=== PATIENT | male | born 1955 | race Caucasian/White ===

== ENCOUNTER 2016-12-22 20:13 | Observation (INO) ==
--- NOTE | 2016-12-22 20:35 | Emergency Department Note ---
Disposition Clinical Impression: Altered mental status Qualifiers: Altered mental status type: unspecified Qualified Code(s): R41.82 - Altered mental status, unspecified Syncope Qualifiers: Syncope type: unspecified Qualified Code(s): R55 - Syncope and collapse Disposition: Admitted As Inpatient Condition: Fair Time of Disposition: 23:19 Altered Mental Status HPI - General Chief Complaint: ED Altered Mental Status Stated Complaint: AMS Time Seen by Provider: 12/22/16 20:22 Source: patient, EMS Mode of arrival: EMS Nursing Notes Reviewed: Yes Vital Signs Reviewed: Yes - History of Present Illness HPI Narrative: 61-year-old who apparently was at home prior to arrival unclear on exact onset was found on his front room floor. Had some evidence of head trauma was some blood over his left ear. Complains of some neck pain. Squad reports that he had some weakness but was kapil able to quantify which side or how much weakness he had an slurred speech initially. Patient does have a history of a TIA in the past. Awake and alert answering questions is amnestic to the events that recently occurred to him. Onset is unknown. MD complaint: altered mental status, decreased responsiveness (Prior to arrival) Onset (ago): unknown Pain Severity: moderate Context: other (TIA in the past) Associated symptoms: Reports: other (Neck pain) Treatments prior to arrival: EMS treatment/medication - Related Data Home Medications Medication Instructions Recorded Confirmed Albuterol Sulfate [Proair Hfa] 2 puff IH Q4H PRN 12/22/16 12/22/16 Benazepril/Hydrochlorothiazide 1 tab PO DAILY 12/22/16 12/22/16 [Lotensin Hct 20-12.5 mg Tablet] FluocinoNIDE 0.05% CRM [Lidex] 1 appl TP BID PRN 12/22/16 12/22/16 Metoprolol XL (24 HR) Succ [Toprol 50 mg PO DAILY 12/22/16 12/22/16 XL] Pantoprazole Sodium [Protonix] 40 mg PO DAILY 12/22/16 12/22/16 Simvastatin [Zocor] 20 mg PO HS 12/22/16 12/22/16 amLODIPine [Norvasc] 5 mg PO DAILY 12/22/16 12/22/16 Allergies Allergy/AdvReac Type Severity Reaction Status Date / Time No Known Allergies Allergy Verified 09/11/17 20:20 All systems ED: reviewed and negative except as stated. Constitutional: Denies: fever, chills, weakness, weight change Eyes: Denies: eye pain, eye discharge, vision change ENT ED: Denies: ear pain, throat pain, dental pain, hearing loss, epistaxis, congestion, dysphagia Cardiovascular: Reports: syncope. Denies: chest pain, palpitations, dyspnea on exertion, edema Respiratory: Denies: cough, dyspnea, wheezes, hemoptysis, stridor Gastrointestinal: Denies: abdominal pain, nausea, vomiting, diarrhea, constipation, hematemesis, melena, hematochezia Genitourinary: Denies: urgency, dysuria, frequency, hematuria Musculoskeletal: Denies: back pain, neck pain, arthralgia, myalgia Integumentary: Denies: rash, abrasion, lesions Neurological: Reports: weakness (Resolved), other (Slurred speech resolved). Denies: headache, numbness, paresthesias, confusion, abnormal gait, vertigo Psychiatric: Denies: anxiety, depression, suicidal thoughts, homicidal thoughts , auditory hallucinations, visual hallucinations Endocrine: Denies: fatigue Hematological/Lymphatic: Denies: easy bleeding, easy bruising Allergic/Immunologic: Denies: facial swelling, urticaria Past Medical History - Past Medical History Medical history: Reports: hyperlipidemia, hypertension, TIA Psychiatric history: Reports: no psych history - Social History Smoking Status: Current every day smoker Smokeless Tobacco Status: No Alcohol use: Reports: none Drug use: Reports: none Physical Exam - General Limitations: altered mental status General appearance: alert, in no apparent distress - Head Head exam: atraumatic, normocephalic, normal inspection - Eye Eye exam: Present: normal appearance, PERRL, EOMI - ENT ENT exam: normal exam, normal oropharynx, mucous membranes moist - Neck Neck exam: Present: normal inspection, full ROM, trachea midline - Chest Chest inspection: Present: normal inspection, symmetric chest wall rise - Respiratory Respiratory exam: Present: normal lung sounds bilaterally - Cardiovascular Cardiovascular exam: Present: regular rate, normal rhythm, normal heart sounds - Abdominal Exam Abdominal exam: Present: soft, Non-Tender. Absent: tenderness, distention, guarding, rebound, rigidity - Extremities Exam Extremities exam: Present: normal inspection, full ROM. Absent: tenderness, pedal edema - Expanded Lower Extremity Exam Neurovascular/Tendon exam: Absent: motor deficit, sensory deficit, tendon deficit Gait: not tested/not observed - Back Exam Back exam: Present: normal inspection, full ROM. Absent: tenderness - Neurological Exam Neurological exam: Present: alert. Absent: motor sensory deficit - Psychiatric Psychiatric exam: Present: normal affect, normal mood - Skin Skin exam: Present: warm, dry, intact, normal color Course - Reevaluation(s) Reevaluation #1: 61-year-old who apparently suffered a syncopal episode. Squad noted general weakness and slurred speech however that resolved by the time he had come to the ER. Did have a TIA in the past. Workup here he was clear his NIH stroke scale was 0. CT of the head and neck were negative. Patient will be admitted for evaluation possible seizure versus syncope. Time: 23:17 - Consultations Consultation #1: Discussed with Dr. Evans miranda. Time: 23:18 Vital Signs Temperature 98.1 F 12/22/16 20:15 Pulse Rate 82 12/22/16 20:15 Respiratory Rate 16 12/22/16 20:15 Blood Pressure 170/118 12/22/16 20:15 O2 Sat by Pulse Oximetry 96 12/22/16 20:15 Temperature 98.1 F 12/22/16 20:15 Pulse Rate 62 12/22/16 22:01 Respiratory Rate 16 12/22/16 22:01 Blood Pressure 150/90 12/22/16 22:01 O2 Sat by Pulse Oximetry 96 12/22/16 22:01 Oxygen Delivery Oxygen Delivery Room Air Altered Mental Status - Lab Data Lab results reviewed: Yes I reviewed the patient's lab results. Result diagrams: 12/22/16 20:35 12/22/16 20:35 Lab Results 12/22/16 12/22/16 12/22/16 Range/Units 20:22 20:35 20:35 WBC 13.8 H (4.3-11.1) K/mcL RBC 4.62 (4.19-5.50) M/mcL Hgb 14.3 (12.9-16.9) g/dL Hct 41.4 (37.5-50.1) % MCV 89.6 (83.0-100.0) fL MCH 31.0 (28.0-33.3) pg MCHC 34.5 (31.6-35.5) g/dL RDW 12.4 (11.5-14.5) % Plt Count 192 (140-400) K/mcL MPV 9.8 (9.4-12.4) fL Immature Gran % 0.4 (0-4) % Seg Neutrophils % 80.3 % Lymphocytes % 10.0 % Monocytes % 7.2 % Eosinophils % 1.3 % Basophils % 0.8 % Neutrophils # 11.1 H (1.6-8.9) K/mcL Lymphocytes # 1.4 (0.6-4.6) K/mcL Monocytes # 1.0 (0.0-1.3) K/mcL Eosinophils # 0.2 (0.0-0.6) K/mcL Basophils # 0.1 (0.0-0.2) K/mcL PT 11.7 (9.4-12.1) Seconds INR 1.1 APTT 33.1 (26.0-36.0) Seconds Sodium (136-145) mEq/L Potassium (3.5-4.5) mEq/L Chloride (98-109) mEq/L Carbon Dioxide (19-29) mEq/L BUN (8-26) mg/dL Creatinine (0.72-1.25) mg/dL Est GFR ( Amer) (> 60) Est GFR (Non-Af Amer) (> 60) BUN/Creatinine Ratio (6-26) Glucose (70-99) mg/dL POC Glucose 124 H (58-89) Calculated Osmolality (280-300) Calcium (8.6-10.8) mg/dL Total Bilirubin (0.2-1.2) mg/dL Direct Bilirubin (0.0-0.5) mg/dL Indirect Bilirubin (0.0-1.2) mg/dL AST (5-34) Units/L ALT (0-55) Units/L Alkaline Phosphatase (38-126) Units/L Troponin I (0-0.03) ng/mL Serum Total Protein (6.0-8.3) g/dL Albumin (3.5-5.0) g/dL Globulin (2.4-3.5) g/dL Albumin/Globulin Ratio (1.1-2.2) Urine Color (Yellow) Urine Clarity (Clear) Urine pH (5.0-8.0) pH Units Ur Specific [place] (1.010-1.025) Urine Protein (Neg-Trace) mg/dL Urine Glucose (UA) (Normal) mg/dL Urine Ketones (Negative) mg/dL Urine Blood (Negative) Urine Nitrite (Negative) Urine Bilirubin (Negative) Urine Urobilinogen (Normal) mg/dL Ur Leukocyte Esterase (Negative) Urine Microscopic RBC (0-3) per hpf Urine Microscopic WBC (0-3) per hpf Ur Squamous Epith Cells (None-Few) per lpf Urine Bacteria (None-Few) per hpf Hyaline Casts (None-Few) per lpf Ur Culture Indicated? (NO) Urine Opiates Screen (Tglsaq=520) ng/mL Ur Barbiturates Screen (Qtsxxf=950) ng/mL Ur Phencyclidine Scrn (Cutoff=25) ng/mL Ur Amphetamines Screen (Unzzqf=0422) ng/mL U Benzodiazepines Scrn (Urfaob=908) ng/mL Urine Cocaine Screen (Cutoff= 300) ng/mL U Marijuana (THC) Screen (Cutoff = 50) ng/mL Ethyl Alcohol (0-10) mg/dL 12/22/16 12/22/16 12/22/16 Range/Units 20:35 20:35 20:43 WBC (4.3-11.1) K/mcL RBC (4.19-5.50) M/mcL Hgb (12.9-16.9) g/dL Hct (37.5-50.1) % MCV (83.0-100.0) fL MCH (28.0-33.3) pg MCHC (31.6-35.5) g/dL RDW (11.5-14.5) % Plt Count (140-400) K/mcL MPV (9.4-12.4) fL Immature Gran % (0-4) % Seg Neutrophils % % Lymphocytes % % Monocytes % % Eosinophils % % Basophils % % Neutrophils # (1.6-8.9) K/mcL Lymphocytes # (0.6-4.6) K/mcL Monocytes # (0.0-1.3) K/mcL Eosinophils # (0.0-0.6) K/mcL Basophils # (0.0-0.2) K/mcL PT (9.4-12.1) Seconds INR APTT (26.0-36.0) Seconds Sodium 130 L (136-145) mEq/L Potassium 3.5 (3.5-4.5) mEq/L Chloride 96 L (98-109) mEq/L Carbon Dioxide 24 (19-29) mEq/L BUN 16 (8-26) mg/dL Creatinine 0.96 (0.72-1.25) mg/dL Est GFR ( Amer) > 60 (> 60) Est GFR (Non-Af Amer) > 60 (> 60) BUN/Creatinine Ratio 17 (6-26) Glucose 120 H (70-99) mg/dL POC Glucose (58-89) Calculated Osmolality 272 L (280-300) Calcium 9.6 (8.6-10.8) mg/dL Total Bilirubin 0.4 (0.2-1.2) mg/dL Direct Bilirubin 0.2 (0.0-0.5) mg/dL Indirect Bilirubin 0.2 (0.0-1.2) mg/dL AST 16 (5-34) Units/L ALT 21 (0-55) Units/L Alkaline Phosphatase 64 (38-126) Units/L Troponin I 0.02 (0-0.03) ng/mL Serum Total Protein 7.2 (6.0-8.3) g/dL Albumin 3.8 (3.5-5.0) g/dL Globulin 3.4 (2.4-3.5) g/dL Albumin/Globulin Ratio 1.1 (1.1-2.2) Urine Color Yellow (Yellow) Urine Clarity Clear (Clear) Urine pH 6.0 (5.0-8.0) pH Units Ur Specific [place] 1.023 (1.010-1.025) Urine Protein 100 H (Neg-Trace) mg/dL Urine Glucose (UA) Normal (Normal) mg/dL Urine Ketones Negative (Negative) mg/dL Urine Blood Small H (Negative) Urine Nitrite Negative (Negative) Urine Bilirubin Negative (Negative) Urine Urobilinogen Normal (Normal) mg/dL Ur Leukocyte Esterase Negative (Negative) Urine Microscopic RBC 5-15 H (0-3) per hpf Urine Microscopic WBC 0-3 (0-3) per hpf Ur Squamous Epith Cells Moderate H (None-Few) per lpf Urine Bacteria None Seen (None-Few) per hpf Hyaline Casts None Seen (None-Few) per lpf Ur Culture Indicated? NO (NO) Urine Opiates Screen (Gpqvmx=414) ng/mL Ur Barbiturates Screen (Gbalxx=999) ng/mL Ur Phencyclidine Scrn (Cutoff=25) ng/mL Ur Amphetamines Screen ([place]=8644) ng/mL U Benzodiazepines Scrn (Kydnbg=510) ng/mL Urine Cocaine Screen (Cutoff= 300) ng/mL U Marijuana (THC) Screen (Cutoff = 50) ng/mL Ethyl Alcohol < 10 (0-10) mg/dL 12/22/16 Range/Units 20:43 WBC (4.3-11.1) K/mcL RBC (4.19-5.50) M/mcL Hgb (12.9-16.9) g/dL Hct (37.5-50.1) % MCV (83.0-100.0) fL MCH (28.0-33.3) pg MCHC (31.6-35.5) g/dL RDW (11.5-14.5) % Plt Count (140-400) K/mcL MPV (9.4-12.4) fL Immature Gran % (0-4) % Seg Neutrophils % % Lymphocytes % % Monocytes % % Eosinophils % % Basophils % % Neutrophils # (1.6-8.9) K/mcL Lymphocytes # (0.6-4.6) K/mcL Monocytes # (0.0-1.3) K/mcL Eosinophils # (0.0-0.6) K/mcL Basophils # (0.0-0.2) K/mcL PT (9.4-12.1) Seconds INR APTT (26.0-36.0) Seconds Sodium (136-145) mEq/L Potassium (3.5-4.5) mEq/L Chloride (98-109) mEq/L Carbon Dioxide (19-29) mEq/L BUN (8-26) mg/dL Creatinine (0.72-1.25) mg/dL Est GFR ( Amer) (> 60) Est GFR (Non-Af Amer) (> 60) BUN/Creatinine Ratio (6-26) Glucose (70-99) mg/dL POC Glucose (58-89) Calculated Osmolality (280-300) Calcium (8.6-10.8) mg/dL Total Bilirubin (0.2-1.2) mg/dL Direct Bilirubin (0.0-0.5) mg/dL Indirect Bilirubin (0.0-1.2) mg/dL AST (5-34) Units/L ALT (0-55) Units/L Alkaline Phosphatase (38-126) Units/L Troponin I (0-0.03) ng/mL Serum Total Protein (6.0-8.3) g/dL Albumin (3.5-5.0) g/dL Globulin (2.4-3.5) g/dL Albumin/Globulin Ratio (1.1-2.2) Urine Color (Yellow) Urine Clarity (Clear) Urine pH (5.0-8.0) pH Units Ur Specific [place] (1.010-1.025) Urine Protein (Neg-Trace) mg/dL Urine Glucose (UA) (Normal) mg/dL Urine Ketones (Negative) mg/dL Urine Blood (Negative) Urine Nitrite (Negative) Urine Bilirubin (Negative) Urine Urobilinogen (Normal) mg/dL Ur Leukocyte Esterase (Negative) Urine Microscopic RBC (0-3) per hpf Urine Microscopic WBC (0-3) per hpf Ur Squamous Epith Cells (None-Few) per lpf Urine Bacteria (None-Few) per hpf Hyaline Casts (None-Few) per lpf Ur Culture Indicated? (NO) Urine Opiates Screen Negative (Xdgcvs=336) ng/mL Ur Barbiturates Screen Negative (Shskvk=132) ng/mL Ur Phencyclidine Scrn Negative (Cutoff=25) ng/mL Ur Amphetamines Screen Negative (Tylsgg=0085) ng/mL U Benzodiazepines Scrn Negative (Etkceu=849) ng/mL Urine Cocaine Screen Negative (Cutoff= 300) ng/mL U Marijuana (THC) Screen Negative (Cutoff = 50) ng/mL Ethyl Alcohol (0-10) mg/dL - Radiology Data Radiology results reviewed: Yes I reviewed the patient's radiology results. Cervical Spine CT 12/22/16 20:31 IMPRESSION: No acute abnormality of the cervical spine. D/ / Adrian Jones MD / Adrian Jones MD Interpreting Provider: Adrian Jones MD Chest X-Ray 12/22/16 20:31 IMPRESSION: No acute cardiopulmonary abnormality. D/ / Sivakumar Morales MD / Sivakumar Morales MD Interpreting Provider: Sivakumar Morales MD Head CT 12/22/16 20:31 IMPRESSION: No acute intracranial abnormality. D/ / Adrian Jones MD / Adrian Jones MD Interpreting Provider: Adrian Jones MD - EKG Data EKG attestation: Yes I reviewed and interpreted this EKG. EKG shows normal: sinus rhythm Rate: normal Rhythm: NSR Interpretation: no acute changes TPA Checklist - Eligibilty for IV tPA 1. LKW equal to or less than 4.5 hours be before treatment: No - LKW: 3-4.5 hrs Add. Warnings/Precautions Patient/family understanding: The patient/family members have been counseled and understood the risk, benefit , and alternatives of treatment. NIH Stroke Scale - Level of Consciousness LOC: Alert - LOC Questions LOC Questions: Answers both correctly - LOC Commands LOC Commands: Performs both correctly - Best Gaze Best Gaze: Normal - Visual Visual: No visual loss - Facial Palsy Facial Palsy: Normal - Motor Arms Motor Arm-Left: No drift for 10 seconds Motor Arm-Right: No drift for 10 seconds - Motor Legs Motor Leg-Left: No drift for 5 seconds Motor Leg-Right: No drift for 5 seconds - Limb Ataxia Limb Ataxia: Normal, No Ataxia - Sensory Sensory: Normal - Best Language Best Language: No aphasia - Dysarthria Dysarthria: Normal - Extinction and Inattention Extinction and Inattention: Normal - NIHSS Total Score NIHSS Total Score: 0
[2016-12-22 20:42] LABS: Hematocrit 41.4 % (37.5-50.1); Hemoglobin 14.3 g/dL (12.9-16.9); Mean Corpuscular HGB Conc 34.5 g/dL (31.6-35.5); Mean Corpuscular Volume 89.6 fL (83.0-100.0); Red Blood Count 4.62 M/mcL (4.19-5.50); Red Cell Distribution Width 12.4 % (11.5-14.5)
[2016-12-22 20:43] LABS: Basophils # 0.1 K/mcL (0.0-0.2); Basophils % 0.8 %; Eosinophils # 0.2 K/mcL (0.0-0.6); Eosinophils % 1.3 %; Immature Granulocytes % 0.4 % (0-4); Lymphocytes # 1.4 K/mcL (0.6-4.6); Mean Platelet Volume 9.8 fL (9.4-12.4); Monocytes % 7.2 %; Neutrophils # 11.1 K/mcL (1.6-8.9); Platelet Count 192 K/mcL (140-400); Segmented Neutrophils % 80.3 %
[2016-12-22 20:50] LABS: Bilirubin,Urine Negative (Negative); Blood,Urine Small (Negative); Clarity,Urine Clear (Clear); Color,Urine Yellow (Yellow); Glucose,Urine (UA) Normal (Normal); Ketones,Urine Negative (Negative); Leukocyte Esterase,Urine Negative (Negative); Nitrite,Urine Negative (Negative); Protein,Urine 100 mg/dL (Neg-Trace); Specific Gravity,Urine 1.023 (1.010-1.025); Urobilinogen,Urine Normal (Normal)
[2016-12-22 20:53] LABS: Bacteria,Urine None Seen per hpf (None-Few); Hyaline Casts,Urine None Seen per lpf (None-Few); Squamous Epithelial Cell,Urine Moderate per lpf (None-Few); WBC,Urine 0-3 per hpf (0-3)
[2016-12-22 20:53] LABS: INR 1.1; Prothrombin Time 11.7 Seconds (9.4-12.1)
[2016-12-22 20:56] LABS: Activated Partial Thrombo Time 33.1 Seconds (26.0-36.0)
[2016-12-22 20:57] LABS: Amphetamine Screen,Urine Negative ng/mL (Cutoff=1000); Barbiturate Screen,Urine Negative ng/mL (Cutoff=200); Benzodiazepines Screen,Urine Negative ng/mL (Cutoff=200); Cannabinoid Screen,Urine Negative ng/mL (Cutoff = 50); Cocaine Screen,Urine Negative ng/mL (Cutoff= 300); Opiate Screen,Urine Negative ng/mL (Cutoff=300); Phencyclidine Screen,Urine Negative ng/mL (Cutoff=25)
[2016-12-22 20:58] LABS: Alanine Aminotransferase 21 Units/L (0-55); Albumin 3.8 g/dL (3.5-5.0); Albumin/Globulin Ratio 1.1 (1.1-2.2); Alkaline Phosphatase 64 Units/L (38-126); Aspartate Amino Transferase 16 Units/L (5-34); BUN/Creatinine Ratio 17 (6-26); Bilirubin,Direct 0.2 mg/dL (0.0-0.5); Bilirubin,Indirect 0.2 mg/dL (0.0-1.2); Bilirubin,Total 0.4 mg/dL (0.2-1.2); Blood Urea Nitrogen 16 mg/dL (8-26); Calcium 9.6 mg/dL (8.6-10.8); Carbon Dioxide 24 mEq/L (19-29); Chloride 96 mEq/L (98-109); Ethanol < 10 mg/dL (0-10); Globulin 3.4 g/dL (2.4-3.5); Glucose 120 mg/dL (70-99); Osmolality,Calculated 272 (280-300); Potassium 3.5 mEq/L (3.5-4.5); Sodium 130 mEq/L (136-145); Total Protein 7.2 g/dL (6.0-8.3); eGFR For African Americans > 60 (> 60); eGFR For Non-African Americans > 60 (> 60)
[2016-12-23] MEDS ORDERED: Naloxone 0.4 MG/ML INJ IVP PRN (00:20)
--- NOTE | 2016-12-23 00:29 | Internal Med History&Physical ---
Date of Encounter: 12/23/16 Time of Encounter: 00:26 Assessment and Plan (1) Syncope Current visit: Yes Status: Acute Tele monitoring inhouse Check TTE Check MRI brain PT eval Orthostats vitals TID Correct hyponatremia Qualifiers: Syncope type: unspecified Qualified Code(s): R55 - Syncope and collapse (2) Hyponatremia Current visit: Yes Status: Acute trend Na with 0.9% NS, send urine NA, urine osmos (3) HTN (hypertension), benign Current visit: Yes Status: Acute continue med (4) TIA (transient ischemic attack) Current visit: No Status: Acute reported hx of TIA per patient Qualifiers: Transient cerebral ischemia type: other Qualified Code(s): G45.8 - Other transient cerebral ischemic attacks and related syndromes Internal Medicine - H&P: HPI History of present illness: Mr. Valente is a 61 year old male with hx of HTN, reported TIA and a hx of syncope who presents with acute syncope attack. He remembers coming home from work but did not recall what happened. He had no recollection of events but report from family reported hearing a loud thud where he was found on the ground in the front room. He noted some local neck pain and blood over the left side of head. He reports a hx of syncope episode which he cannot recall when it was but remembered that it was when he was dx with a small CVA or TIA. He denies any cardiac hx on direct questioning Objectively, he was found to be hyponatremic with Na 130. There were EMS report of generalized weakness and slurred speech ?? on initial triage but these were all unclear CT/CT head/brain wo con IMPRESSION: No acute intracranial abnormality. XR/XR chest 1V portable IMPRESSION: No acute cardiopulmonary abnormality. CT/CT cervical spine wo con IMPRESSION: No acute abnormality of the cervical spine. Past Med Surg Social Fam HX - Past Medical History Medical history: hyperlipidemia, hypertension, TIA Psychiatric history: no psych history - Social History Smoking Status: Current every day smoker Smokeless Tobacco Status: No Alcohol use: none Drug use: none Internal Medicine - H&P: Meds Albuterol Sulfate [Proair Hfa] 2 puff IH Q4H PRN 12/22/16 [History] Benazepril/Hydrochlorothiazide [Lotensin Hct 20-12.5 mg Tablet] 1 tab PO DAILY 12/22/16 [History] FluocinoNIDE 0.05% CRM [Lidex] 1 appl TP BID PRN 12/22/16 [History] Metoprolol XL (24 HR) Succ [Toprol XL] 50 mg PO DAILY 12/22/16 [History] Pantoprazole Sodium [Protonix] 40 mg PO DAILY 12/22/16 [History] Simvastatin [Zocor] 20 mg PO HS 12/22/16 [History] amLODIPine [Norvasc] 5 mg PO DAILY 12/22/16 [History] 3 Allergy/AdvReac Type Severity Reaction Status Date / Time No Known Allergies Allergy Verified 12/22/16 20:20 All Systems PM: A 10-system review of systems was performed and is negative for pertinent findings except as documented above in the HPI. Review of systems: ROS 14 point review of systems reviewed as best as possible given presentation. Pertinent positive or negative as per HPI or otherwise reviewed as negative - Constitutional Vitals: Temp Pulse Resp BP Pulse Ox 98.1 F 62 20 120/73 96 12/22/16 20:15 12/22/16 22:01 12/22/16 23:58 12/22/16 23:58 12/22/16 22:01 Exam: General - AAO x 3 Psych - Appropriate affect/speech. No agitation Eyes - SHERON. Eye lids intact. No scleral icterus Neuro - No gross peripheral or central neuro deficits with intact CN 2-12 exam Heart - Sinus. RRR. S1 and S2 present. No added HS/murmurs appreciated. No elevated JVD appreciated. No calf swellings/erythema Lung - Adequate air entry b/l, No crackles/wheezes appreciated GI - Soft, non-tender. No hepatosplenomegaly/ascites. BS+ - No CVA/suprapubic tenderness or palpable bladder distension Skin - Intact. No rash/petechiae/ecchymosis. Warm extremities MSK - Joints with normal ROM. No joint swellings Internal Med - H&P Results - Labs CBC & Chem 7: 12/22/16 20:35 12/22/16 20:35
[2016-12-23] MEDS: 0.9 % Sodium Chloride 1,000 ML IVC SCH ×2 (01:20→19:21)
[2016-12-23 04:32] LABS: Basophils # 0.1 K/mcL (0.0-0.2); Basophils % 0.9 %; Eosinophils # 0.2 K/mcL (0.0-0.6); Eosinophils % 1.7 %; Hematocrit 38.6 % (37.5-50.1); Hemoglobin 13.5 g/dL (12.9-16.9); Immature Granulocytes % 0.3 % (0-4); Lymphocytes # 2.7 K/mcL (0.6-4.6); Lymphocytes % 23.6 %; Mean Corpuscular Hemoglobin 31.8 pg (28.0-33.3); Monocytes % 8.2 %; Neutrophils # 7.6 K/mcL (1.6-8.9); Platelet Count 171 K/mcL (140-400); Red Blood Count 4.24 M/mcL (4.19-5.50); Red Cell Distribution Width 12.5 % (11.5-14.5); Segmented Neutrophils % 65.3 %
[2016-12-23 04:41] LABS: BUN/Creatinine Ratio 14 (6-26); Blood Urea Nitrogen 12 mg/dL (8-26); Calcium 9.3 mg/dL (8.6-10.8); Carbon Dioxide 25 mEq/L (19-29); Chloride 100 mEq/L (98-109); Glucose 88 mg/dL (70-99); Magnesium 1.7 mg/dL (1.6-2.6); Osmolality,Calculated 275 (280-300); Potassium 3.6 mEq/L (3.5-4.5); Sodium 133 mEq/L (136-145); eGFR For African Americans > 60 (> 60); eGFR For Non-African Americans > 60 (> 60)
[2016-12-23] MEDS: Metoprolol XL (24 HR) Succ 50 MG TAB.ER.24H PO SCH (08:02)
[2016-12-23] MEDS: amLODIPine 5 MG TABLET PO SCH (08:02)
[2016-12-23] MEDS: Lisinopril-HCTZ 20-12.5mg TABLET PO SCH (08:02)
--- NOTE | 2016-12-23 13:45 | Electrocardiograph Report ---
[address] [place] [address] Test Date: 2016-12-22 Pat Name: Oscar Valente Department: [id number] Room: 3B33 Gender: M Gate Guard: : 1955 Requested By: Isaac Pena Order Number: [id number] Reading MD: Keri Khan Measurements Intervals [place] Rate: 78 P: 37 NH: 172 QRS: 12 QRSD: 110 T: -3 QT: 372 QTc: 406 Interpretive Statements SINUS RHYTHM POSSIBLE LEFT ATRIAL ENLARGEMENT INFERIOR MYOCARDIAL INFARCTION, OF INDETERMINATE AGE Electronically Signed On 12-23-2016 13:43:43 EDT by Keri Khan
--- NOTE | 2016-12-23 19:27 | Internal Med Progress Note ---
Date of Encounter: 12/23/16 Time of Encounter: 14:15 - Assessment and plan (1) Syncope Current Visit: Yes Status: Acute Assessment and plan: Patient had syncopal episode at home. Patient has no recollection of events other than he was found on the floor by his daughter. CT head showed no acute intracranial abnormality. Brain MRI showed cerebral atrophy with mild chronic small vessel ischemic changes, remote lacunar infarct right basal ganglia. There is no acute intracranial abnormality. Echocardiogram shows LVEF of 65% with mild LV hypertrophy, moderate LV DD, mild MR. Orthostatic vital signs were negative. He is not hypertensive, he is not tachycardic, he is however bradycardic, with his highest heart rate today being 65, respiratory rates were primarily in the 50s. EKG showed sinus rhythm with a rate of 78, MO interval 172, QRS 110, QT/QTC 372/406. Carotid Dopplers were negative today. We will monitor for continued bradycardia overnight and consider decreasing beta naif in the morning if he is still bradycardic. Continue telemetry Continue fall precautions Qualifiers: Syncope type: unspecified Qualified Code(s): R55 - Syncope and collapse (2) HTN (hypertension), benign Current Visit: Yes Status: Acute Assessment and plan: Well controlled. Continue home medications. (3) Hyponatremia Current Visit: Yes Status: Acute Assessment and plan: Improving. Sodium 133 today. We will continue to monitor in the morning. (4) TIA (transient ischemic attack) Current Visit: Yes Status: Chronic Assessment and plan: Per patient history. Qualifiers: Transient cerebral ischemia type: other Qualified Code(s): G45.8 - Other transient cerebral ischemic attacks and related syndromes (5) DVT prophylaxis Current Visit: Yes Status: Acute Assessment and plan: Patient has been ambulatory, order SUNITA ponce. - Time Spent With Patient less than 15 minutes - Subjective Interval history: Patient was seen and assessed at 1415 today. He is resting quietly in his room. He is agreeable to stay as carotids and echo were ordered and were pending at the time that I saw him. He denies chest pain, dizziness, blurred vision. She states that he was found by his daughter and does not remember what happened. He denies any cardiac history. Hyponatremia is being corrected , it was 133 this morning, we will continue to assess in the morning. - Constitutional Vitals: Temp Pulse Resp BP Pulse Ox 97.7 F 65 16 119/67 97 12/23/16 18:31 12/23/16 18:31 12/23/16 18:31 12/23/16 18:31 12/23/16 18:31 General appearance: Present: disheveled, A&O X 3, pleasant, no acute distress, answers questions appropriately - Head Head exam: Present: atraumatic, normal inspection, normocephalic - Eye Eye exam: Present: EOMI, normal appearance, conjuntiva pink, sclera anicteric. Absent: nystagmus - Neck Neck exam general surgery: Present: supple, trachea midline. Absent: lymphadenopathy, tenderness - Respiratory Respiratory exam: Present: CTAB. Absent: accessory muscle use, chest wall tenderness, decreased breath sounds, rales, rhonchi, wheezes - Cardiovascular Cardiovascular exam: Present: RRR, +S1, +S2. Absent: diastolic murmur, gallop, rubs, systolic murmur - GI/Abdominal GI/Abdominal exam: Present: normal bowel sounds, soft, no peritoneal signs. Absent: distended, hepatomegaly, tenderness - Extremities Exam Extremities exam: Present: normal capillary refill, warm, radial pulses palpable and symmetrical. Absent: calf tenderness, cyanotic, pedal edema - Neurological Exam Neurological exam: Present: alert, oriented X3, no focal deficits, strengths equal and symetr throughout. Absent: facial droop, speech deficit - Skin Skin exam: Present: dry, intact, normal color, warm. Absent: rash Internal Medicine: Result - Labs CBC & Chem 7: 12/23/16 04:12 12/23/16 04:12 Labs: Short CBC 12/23/16 Range/Units 04:12 WBC 11.6 H (4.3-11.1) K/mcL Hgb 13.5 (12.9-16.9) g/dL Hct 38.6 (37.5-50.1) % Plt Count 171 (140-400) K/mcL Neutrophils # 7.6 (1.6-8.9) K/mcL BMP 12/23/16 04:12 Sodium 133 L Potassium 3.6 Chloride 100 Carbon Dioxide 25 BUN 12 Creatinine 0.84 Glucose 88 Calcium 9.3 - ABG Interpretation ABG results: PT/INR, D-dimer PT 11.7 Seconds (9.4-12.1) 12/22/16 20:35 - Impressions Impressions Brain MRI 12/23/16 00:23 IMPRESSION: Cerebral atrophy. Mild chronic small vessel ischemic changes. Remote lacunar infarct in the right basal ganglia. No acute intracranial abnormality. D/ / 12/23/2016 10:17:58 Leticia Darby MD / Nayeli Latham Interpreting Provider: Leticia Darby MD Consult Discharge Plan - Plan Referrals: Eric Lopez DO [Primary Care Provider] -
[2016-12-23] MEDS: Nicotine 21 MG PATCH.TD24 TD SCH (22:16)
[2016-12-24 04:29] LABS: Basophils # 0.1 K/mcL (0.0-0.2); Basophils % 1.4 %; Eosinophils # 0.3 K/mcL (0.0-0.6); Eosinophils % 3.6 %; Hematocrit 38.5 % (37.5-50.1); Hemoglobin 12.9 g/dL (12.9-16.9); Immature Granulocytes % 0.3 % (0-4); Lymphocytes # 2.2 K/mcL (0.6-4.6); Lymphocytes % 30.1 %; Mean Corpuscular HGB Conc 33.5 g/dL (31.6-35.5); Mean Corpuscular Hemoglobin 30.8 pg (28.0-33.3); Mean Corpuscular Volume 91.9 fL (83.0-100.0); Mean Platelet Volume 9.6 fL (9.4-12.4); Monocytes # 0.7 K/mcL (0.0-1.3); Monocytes % 8.8 %; Neutrophils # 4.1 K/mcL (1.6-8.9); Platelet Count 169 K/mcL (140-400); Red Blood Count 4.19 M/mcL (4.19-5.50); Red Cell Distribution Width 12.4 % (11.5-14.5); Segmented Neutrophils % 55.8 %
[2016-12-24 04:42] LABS: BUN/Creatinine Ratio 15 (6-26); Blood Urea Nitrogen 13 mg/dL (8-26); Calcium 9.2 mg/dL (8.6-10.8); Carbon Dioxide 29 mEq/L (19-29); Chloride 102 mEq/L (98-109); Glucose 91 mg/dL (70-99); Osmolality,Calculated 282 (280-300); Potassium 3.9 mEq/L (3.5-4.5); Sodium 136 mEq/L (136-145); eGFR For African Americans > 60 (> 60); eGFR For Non-African Americans > 60 (> 60)
[2016-12-24] MEDS: Metoprolol XL (24 HR) Succ 50 MG TAB.ER.24H PO SCH (09:01)
[2016-12-24] MEDS: Nicotine 21 MG PATCH.TD24 TD SCH (09:12)
[2016-12-24] MEDS: Lisinopril-HCTZ 20-12.5mg TABLET PO SCH (09:14)
[2016-12-24] MEDS: amLODIPine 5 MG TABLET PO SCH (09:14)
[2016-12-24 11:59] VITALS: BP 144/82
--- NOTE | 2016-12-24 12:06 | Discharge Summary ---
Date of Encounter: 12/24/16 Time of Encounter: 09:00 - Discharge Diagnosis (1) Syncope Priority: Primary Status: Acute Comments: CT head showed no acute intracranial abnormality. Brain MRI showed cerebral atrophy with mild chronic small vessel ischemic changes, remote lacunar infarct right basal ganglia. There is no acute intracranial abnormality. Echocardiogram shows LVEF of 65% with mild LV hypertrophy, moderate LV DD, mild MR. Orthostatic vital signs were negative. He is not hypertensive, he is not tachycardic, he is however bradycardic, with his highest heart rate today being 65, rates were primarily in the 50s. EKG showed sinus rhythm with a rate of 78 , MI interval 172, QRS 110, QT/QTC 372/406. Carotid Dopplers were negative. Pt remained bradycardic overnight and his metoprolol was held today. Rate is now in the 70s and BP is slightly above his normal, however, still remains within goal. I will decrease dose to avoid rebound tachycardia or hypertension and pt will follow up with PCP for continued monitoring and medication adjustments. Pt will also wear a Holter monitor with results to PCP. Qualifiers: Syncope type: unspecified Qualified Code(s): R55 - Syncope and collapse (2) HTN (hypertension), benign Priority: Secondary Status: Chronic Comments: Well controlled. Continue home medications. (3) Hyponatremia Priority: Secondary Status: Resolved Comments: Resolved, Na+ 136 today. (4) TIA (transient ischemic attack) Priority: Secondary Status: Chronic Comments: Per pt history. Qualifiers: Transient cerebral ischemia type: other Qualified Code(s): G45.8 - Other transient cerebral ischemic attacks and related syndromes (5) DVT prophylaxis Priority: Secondary Status: Acute Comments: SUNITA ponce orders, pt has been ambulatory. - Discharge Medications Prescriptions: Metoprolol XL (24 HR) Succ [Toprol Xl] 25 mg PO DAILY #20 tab.er.24h Nicotine Patch [Nicoderm] 21 mg TD DAILY #28 patch Home Medications: Albuterol Sulfate [Proair Hfa] 2 puff IH Q4H PRN 12/22/16 [History] Benazepril/Hydrochlorothiazide [Lotensin Hct 20-12.5 mg Tablet] 1 tab PO DAILY 12/22/16 [History] FluocinoNIDE 0.05% CRM [Lidex] 1 appl TP BID PRN 12/22/16 [History] Pantoprazole Sodium [Protonix] 40 mg PO DAILY 12/22/16 [History] Simvastatin [Zocor] 20 mg PO HS 12/22/16 [History] amLODIPine [Norvasc] 5 mg PO DAILY 12/22/16 [History] Metoprolol XL (24 HR) Succ [Toprol Xl] 25 mg PO DAILY #20 tab.er.24h 12/24/16 [ Rx] Nicotine Patch [Nicoderm] 21 mg TD DAILY #28 patch 12/24/16 [Rx] Allergies/Adverse Reactions: 3 Allergy/AdvReac Type Severity Reaction Status Date / Time No Known Allergies Allergy Verified 12/22/16 20:20 Procedures/tests Complete & Pending: Procedures Performed prior 72 hours Category Date Time Status MR head/brain wo con [MR] Routine MRI 12/23/16 00:23 Completed EV carotid duplex imaging BI Routine Y 12/23/16 13:12 Completed EV echocardiogram Routine Y 12/23/16 00:23 Completed Date of admission: 12/22/16 23:31 Primary care physician: Kyle Kaplan Consults: 12/23/16 00:22 Consult to Physical Therapy [CONS] Routine Comment: Evaluate, develop and implement POC Reason for Consult: fall,syncope 12/24/16 11:45 Consult to Plant Anatomy Teacher [CONS] Routine Reason for SW Consult: Discharge ride Discharging clinician: Namrata Carlson Anticipated date of discharge: 12/24/16 - Patient Status Disposition: Home, Self-Care Condition: Good Functional capacity at discharge: independent ambulation Overall status at discharge: patient is back to baseline - Ambulatory Orders Ambulatory Orders: ECG holter monitor [ECG] Time Frame: 3 Days, Facility: [facility], Location: Cardiopulmonary Svc - Discharge Instructions Follow Up With: Eric Lopez DO [Primary Care Provider] - Additional Instructions: Follow up with Dr. Lopez in the next 7-10 days for a follow up visit. Wear the holter monitor as directed and return as directed, your PCP will get the results and discuss the results with you. Stop your Toprol XL 50mg and start 25mg po, discuss this change with Dr. Lopez. Keep a record of your blood pressures and take to the appointment with you. Return to the ER as needed for any other problems or concerns or if your symptoms return or worsen. - Diet and Activity Activity: increase activity as tolerated, return to work once cleared by your PCP/specialist Diet: advance to your usual diet, low fat, low cholesterol Hospital course: Mr. Valente is a 61 year old male with PMH of HTN, TIA who presented to the ED with c/o syncopal episode prior to arrival. Pt states that he was going to drive his daughter to [place] and went into his living room, the next thing he remembers is being placed in the squad to come to the ED. Pt has no recollection of event and denies chest pain, SOB, dizziness, or any other symptoms prior to event. Pt was hyponatremic on arrival, has resolved with Na+ [address] cervical spine negative for acute abnormality due to fall. Chest Xray negative for acute cardiopulmonary abnormality. Head CT negative for actue intraranial abnormality. Brain MRI showed cerebarl atrophy, mild chronic small vessel ischemic changes and a remote lacunar infarct in the right basal ganglia. There was no actue intracranial abnormality. Echo with LVEF 65% and mild LV hypertrophy, mild LVDD and mild MR. EKG was NSR wtih rate 78, MI interval 172, QRS 110, QT/QTc 372/406. Carotid dopplers are negative. Pt denies chest pain and has been asymptomatic since arrival. He has been ambulatory in his room without difficulty. Orthostatic vital signs were negative. Pt was found to be bradycardic with rate in the 50s and low 60s. His BB was held today and his rate has increased into the 70s and BP within goal. Labs are WNL and vitals are stable. He denies chest pain, n/v/d, diaphoresis, dizziness, lightheadeness, abd pain, headache, or vision changes. He will be sent home with a decreased dose of Metoprolol XL 25mg, decreased from 50mg daily , and an order for a Holter monitor to be worn for 3 days with results to PCP. Pt is a smoker and states that he is not ready to stop smoking at this time, I will still send an rx for nicotine patches home with pt, he has been successful with them during admission. Pt is ready for discharge. Time spent discussing smoking cessation with patient: 3 to 10 minutes - Time Spent with Patient Total time spent providing and/or coordinating discharge services: Less than 30 minutes - Constitutional Vitals: Temp Pulse Resp BP Pulse Ox 97.6 F 69 17 144/82 99 12/24/16 11:58 12/24/16 11:58 12/24/16 11:58 12/24/16 11:58 12/24/16 11:58 General appearance: Present: disheveled, A&O X 3, pleasant, no acute distress, answers questions appropriately - Head Head exam: Present: atraumatic, normal inspection, normocephalic - Eye Eye exam: Present: EOMI, normal appearance, conjuntiva pink, sclera anicteric - Neck Neck exam general surgery: Present: normal inspection, supple, trachea midline. Absent: lymphadenopathy, tenderness - Respiratory Respiratory exam: Present: CTAB. Absent: accessory muscle use, rales, rhonchi, wheezes - Cardiovascular Cardiovascular exam: Present: RRR, +S1, +S2. Absent: diastolic murmur, gallop, rubs, systolic murmur - GI/Abdominal GI/Abdominal exam: Present: normal bowel sounds, soft, no peritoneal signs. Absent: distended, hepatomegaly, tenderness - Extremities Exam Extremities exam: Present: normal inspection, warm, radial pulses palpable and symmetrical. Absent: calf tenderness, cyanotic, pedal edema - Neurological Exam Neurological exam: Present: alert, oriented X3, no focal deficits. Absent: facial droop, speech deficit - Skin Skin exam: Present: dry, intact, normal color, warm. Absent: rash
--- NOTE | 2016-12-25 17:07 | Carotid Imaging Report ---
Carotid Duplex Patient Name:Oscar Valente Order Number:[id number] Procedure Date:12/23/2016 Date:1955ge:61 yrs Gender:Male Lt BP:116 / 65 mmHg Rt.BP:114 / 61 mmHgHeart Rate: Location:[facility] Room #: 3B33 Assistant Men'S Lacrosse Coach:Bere Winter, RDCS, RVT Referring MD:Namrata Carlson VACUUM FRAME OPERATOR agricultural extension agent:Eric Lopez, DO Reading MD:Ervin Doe MD , FACS Primary Indications:Syncope Risk Factors Yes/No Hypertension Yes Hypercholesterolemia Yes Smoking Current Yes Impressions: Findings: Bilateral carotid systems are essentially normal. Findings Carotid Duplex: Right: The right proximal common carotid artery has a PSV of 77 cm/s and a EDV of 12 cm/s. The right mid common carotid artery has a PSV of 80 cm/s and a EDV of 18 cm/s. The right distal common carotid artery has a PSV of 75 cm/s and a EDV of 22 cm/s. The right bifurcation has a PSV of 67 cm/s and a EDV of 16 cm/s. The right proximal internal carotid artery has a PSV of 106 cm/s and a EDV of 21 cm/s. The right mid internal carotid artery has a PSV of 75 cm/s and a EDV of 15 cm/s. The right distal internal carotid artery has a PSV of 62 cm/s and a EDV of 17 cm/s. The right eca has a PSV of 111 cm/s and a EDV of 21 cm/s. The right vertebral artery has a PSV of 42 cm/s and a EDV of 8 cm/s. Left: The left proximal common carotid artery has a PSV of 96 cm/s and a EDV of 23 cm/s. The left mid common carotid artery has a PSV of 84 cm/s and a EDV of 19 cm/s. The left distal common carotid artery has a PSV of 85 cm/s and a EDV of 24 cm/s. The left bifurcation has a PSV of 62 cm/s and a EDV of 14 cm/s. The left proximal internal carotid artery has a PSV of 67 cm/s and a EDV of 13 cm/s. The left mid internal carotid artery has a PSV of 60 cm/s and a EDV of 19 cm/s. The left distal internal carotid artery has a PSV of 69 cm/s and a EDV of 17 cm/s. The left eca has a PSV of 88 cm/s and a EDV of 15 cm/s. The left vertebral artery has a PSV of 39 cm/s and a EDV of 10 cm/s. Prior Study: No prior study available for comparison. Carotid Results Right PSV EDV Assessment Proximal CCA 77 12 Mid CCA 80 18 Distal CCA 75 22 Bifurcation 67 16 Proximal ICA 106 21 Mid ICA 75 15 Distal ICA 62 17 ECA 111 21 Vertebral Artery 42 8 Antegrade Flow Left PSV EDV Assessment Proximal CCA 96 23 Mid CCA 84 19 Distal CCA 85 24 Bifurcation 62 14 Proximal ICA 67 13 Mid ICA 60 19 Distal ICA 69 17 ECA 88 15 Vertebral Artery 39 10 Antegrade Flow Ratio's Right ICA/CCA Ratio: 1.30 ICA/CCA Values: 106/80 Left ICA/CCA Ratio: 0.80 ICA/CCA Values: 67/84 Updated by Ervin Doe MD, FACS on 12/25/2016 5:01:27 PM Ervin Doe MD electronically signed on 12/25/2016 5:01:58 PM with status of Final
--- NOTE | 2016-12-30 17:31 | Holter Monitor Report ---
[address] [place], [place] [address] Test Date: 2016-12-26 Pat Name: Oscar Valente Department: Room: 3B33 Gender: Buzzle Buffer: Suzi Arriola : 1955 Requested By: Annalise Estevez Order Number: [id number] Reading MD: Keri Khan Interpretive Statements [address] [place] [id number] Monitor Duration: 48 Indications: BRADYCARDIA/SYNCOPE Recording Time: 48:05 Time Analyzed: 48:04 Quality of Tracing: good Diary: yes Description of symptoms: no There were 145801 total beats, including ectopy. Average HR was 69. Minimum HR of 44 BPM occurred at 01:29D3 and maximum HR of 122 BPM occurred at 14:39D1. Ventricular Ectopy consisted of 41 total beats averaging 0.9 beats per hour, 0 paired PVCs. There were 41 single PVCs. 0 episodes of bigeminy, and 0 episodes of trigeminy. There were 0 runs of non-sustained VT. Supraventricular Ectopy consisted of 12 total beats. There were 8 single PACs, 4 paired PACs, and 0 runs of SVT. There is 0 evidence of any pauses or bradycardia events. Impression: 1. Baseline rhythm is normal sinus throughout recording. 2. Rare PACs. Rare PVCs. 3. No atrial or ventricular arrhythmias. No pauses. 4. No symptoms reported in patient diary. Electronically Signed On 12-30-2016 17:29:23 EDT by Keri Khan
== END 2016-12-24 13:45 | disposition home or self-care (01) ==
LOC: 3BNU 20:13 → EMEROO 20:13 → 3BNU 12-23 00:25
PROVIDERS: ADMIT Internal Medicine Hematology & Oncology; ATTEND Nurse Practitioner Family

== ENCOUNTER 2019-09-04 14:56 | Inpatient (IN) ==
[2019-09-04] MEDS ORDERED: *HR* HYDROmorphone (PF) 1 MG/ML SYRINGE IVP ONE (15:27)
[2019-09-04] MEDS ORDERED: Isovue-370 500 ML BOTTLE IVP ONE (15:32)
[2019-09-04 16:02] LABS: Basophils # 0.1 K/mcL (0.0-0.2); Basophils % 0.7 %; Eosinophils # 0.2 K/mcL (0.0-0.6); Eosinophils % 1.2 %; Hematocrit 42.3 % (37.5-50.1); Hemoglobin 14.6 g/dL (12.9-16.9); Immature Granulocytes % 0.7 % (0-4); Lymphocytes # 2.1 K/mcL (0.6-4.6); Lymphocytes % 15.4 %; Mean Corpuscular HGB Conc 34.5 g/dL (31.6-35.5); Mean Corpuscular Hemoglobin 31.9 pg (28.0-33.3); Mean Corpuscular Volume 92.6 fL (83.0-100.0); Mean Platelet Volume 9.4 fL (9.4-12.4); Monocytes # 1.4 K/mcL (0.0-1.3); Neutrophils # 9.9 K/mcL (1.6-8.9); Platelet Count 263 K/mcL (140-400); Red Blood Count 4.57 M/mcL (4.19-5.50); Red Cell Distribution Width 11.9 % (11.5-14.5); White Blood Count 13.7 K/mcL (4.3-11.1)
[2019-09-04 16:14] LABS: BUN/Creatinine Ratio 14 (6-26); Blood Urea Nitrogen 12 mg/dL (8-23); Calcium 9.6 mg/dL (8.6-10.3); Carbon Dioxide 21 mEq/L (23-29); Chloride 94 mEq/L (98-107); Glucose 158 mg/dL (70-105); Osmolality,Calculated 265 (280-300); Potassium 3.7 mEq/L (3.5-5.1); Sodium 126 mEq/L (136-145); eGFR For African Americans > 60 (> 60); eGFR For Non-African Americans > 60 (> 60)
[2019-09-04] MEDS ORDERED: *HR* Heparin 5,000 UNIT/ML VIAL IVP ONE (16:49)
[2019-09-04] MEDS ORDERED: *HR* Heparin 5,000 UNIT/ML VIAL IVP PRN (16:49)
[2019-09-04] MEDS ORDERED: Heparin 25,000 UNIT/250 ML D5W 25,000 UNIT/250 ML IV.SOLN IVC SCH (17:00)
[2019-09-04 17:21] LABS: Heparin anti-factor XA UFH < 0.04 IU/mL (0.30-0.70)
[2019-09-04 17:22] LABS: INR 1.1; Prothrombin Time 12.5 Seconds (9.4-12.1)
[2019-09-04] MEDS ORDERED: Ondansetron 4 MG/2 ML VIAL IVP PRN (17:26)
[2019-09-04] MEDS ORDERED: Naloxone 0.4 MG/ML INJ IVP PRN (17:26)
[2019-09-04] MEDS ORDERED: *HR* HYDROmorphone (PF) 1 MG/ML SYRINGE IVP PRN (17:27)
[2019-09-04] MEDS: 0.9 % Sodium Chloride 1,000 ML IVC SCH (19:25)
[2019-09-05] MEDS: *HR* Heparin 5,000 UNIT/ML VIAL IVP PRN ×2 (00:09→07:15)
[2019-09-05] MEDS: 0.9 % Sodium Chloride 1,000 ML IVC SCH ×2 (03:32→16:40)
[2019-09-05 04:11] LABS: Basophils # 0.1 K/mcL (0.0-0.2); Basophils % 0.7 %; Eosinophils # 0.1 K/mcL (0.0-0.6); Eosinophils % 0.6 %; Hematocrit 40.2 % (37.5-50.1); Hemoglobin 14.1 g/dL (12.9-16.9); Immature Granulocytes % 0.4 % (0-4); Lymphocytes # 1.8 K/mcL (0.6-4.6); Lymphocytes % 13.5 %; Mean Corpuscular HGB Conc 35.1 g/dL (31.6-35.5); Mean Corpuscular Hemoglobin 32.9 pg (28.0-33.3); Mean Corpuscular Volume 93.7 fL (83.0-100.0); Mean Platelet Volume 9.4 fL (9.4-12.4); Monocytes # 1.4 K/mcL (0.0-1.3); Monocytes % 10.6 %; Platelet Count 220 K/mcL (140-400); Red Blood Count 4.29 M/mcL (4.19-5.50); Red Cell Distribution Width 11.8 % (11.5-14.5); Segmented Neutrophils % 74.2 %; White Blood Count 13.5 K/mcL (4.3-11.1)
[2019-09-05 04:30] LABS: BUN/Creatinine Ratio 14 (6-26); Blood Urea Nitrogen 10 mg/dL (8-23); Calcium 8.8 mg/dL (8.6-10.3); Carbon Dioxide 22 mEq/L (23-29); Chloride 99 mEq/L (98-107); Glucose 121 mg/dL (70-105); Magnesium 2.1 mg/dL (1.6-2.6); Osmolality,Calculated 270 (280-300); Phosphorous 2.6 mg/dL (2.7-4.5); Potassium 3.9 mEq/L (3.5-5.1); Sodium 130 mEq/L (136-145); eGFR For African Americans > 60 (> 60); eGFR For Non-African Americans > 60 (> 60)
[2019-09-05] MEDS ORDERED: Metoprolol XL (24 HR) Succ 50 MG TAB.ER.24H PO SCH (09:00)
[2019-09-05] MEDS ORDERED: amLODIPine 5 MG TABLET PO SCH (09:00)
[2019-09-05] MEDS ORDERED: CeFAZolin Syr 2,000MG/20 ML 2,000 MG/20 ML SYRINGE IVPB ONE (09:40)
[2019-09-05] MEDS ORDERED: 0.9 % Sodium Chloride 1,000 ML IVC SCH (11:45)
[2019-09-05] MEDS ORDERED: *HR* Succinylcholine 200 MG/10 ML VIAL IVP ONE (12:13)
[2019-09-05] MEDS ORDERED: Dexamethasone 4 MG/ML VIAL ONE (12:13)
[2019-09-05] MEDS ORDERED: Ondansetron 4 MG/2 ML VIAL ONE (12:13)
[2019-09-05] MEDS ORDERED: Lidocaine -MPF 2% 2 ML VIAL ONE (12:13)
[2019-09-05] MEDS ORDERED: *HR* Rocuronium Bromide 50 MG/5 ML VIAL ONE (12:13)
[2019-09-05] MEDS ORDERED: *HR* Midazolam HCl 2 MG/2 ML VIAL ONE (12:14)
[2019-09-05] MEDS ORDERED: *HR* Propofol 200 MG/20 ML VIAL IVP ONE (12:14)
[2019-09-05] MEDS ORDERED: *HR* FentaNYL (PF) 100 MCG/2 ML VIAL ONE ×2 (12:14→13:37)
[2019-09-05] MEDS ORDERED: Ropivacaine/PF 0.5% 30 ML VIAL ONE (12:18)
[2019-09-05] MEDS ORDERED: Acetaminophen IV 1,000 MG/100 ML INFUS..BTL ONE (12:18)
[2019-09-05] MEDS ORDERED: Lidocaine -MPF 2% 5 ML VIAL ONE (12:18)
[2019-09-05] MEDS ORDERED: ROPIVACAINE/PF/NS 0.25% 1 EACH SYRINGE INTRAART ONE (12:18)
[2019-09-05] MEDS ORDERED: EPHEDrine 50 MG/ML VIAL ONE (14:19)
[2019-09-05] MEDS ORDERED: *HR* Promethazine 25 MG/ML VIAL IVP PRN (14:31)
[2019-09-05] MEDS ORDERED: Ondansetron 4 MG/2 ML VIAL IVP ONE (14:31)
[2019-09-05] MEDS ORDERED: *HR* OxyCODONE Immed Rel 5 MG TABLET PO PRN (14:31)
[2019-09-05] MEDS ORDERED: Naloxone 0.4 MG/ML INJ IVP PRN (16:51)
[2019-09-05] MEDS ORDERED: Ondansetron 4 MG/2 ML VIAL IVP PRN (16:51)
[2019-09-05] MEDS: CeFAZolin 2 GM/120 ML BAG IVPB SCH (22:12)
[2019-09-06] MEDS: CeFAZolin 2 GM/120 ML BAG IVPB SCH ×2 (04:40→13:44)
[2019-09-06] MEDS: amLODIPine 5 MG TABLET PO SCH (07:31)
[2019-09-06] MEDS: Metoprolol XL (24 HR) Succ 25 MG TAB.ER.24H PO SCH (07:31)
[2019-09-06 07:55] LABS: Basophils % 0.3 %; Eosinophils % 0.2 %; Hematocrit 36.2 % (37.5-50.1); Immature Granulocytes % 0.6 % (0-4); Lymphocytes # 1.9 K/mcL (0.6-4.6); Lymphocytes % 12.9 %; Mean Corpuscular Hemoglobin 32.7 pg (28.0-33.3); Mean Corpuscular Volume 96.3 fL (83.0-100.0); Mean Platelet Volume 9.5 fL (9.4-12.4); Monocytes # 1.5 K/mcL (0.0-1.3); Monocytes % 10.5 %; Neutrophils # 10.9 K/mcL (1.6-8.9); Platelet Count 208 K/mcL (140-400); Red Blood Count 3.76 M/mcL (4.19-5.50); Red Cell Distribution Width 11.9 % (11.5-14.5); Segmented Neutrophils % 75.5 %; White Blood Count 14.4 K/mcL (4.3-11.1)
[2019-09-06 08:11] LABS: BUN/Creatinine Ratio 20 (6-26); Blood Urea Nitrogen 14 mg/dL (8-23); Calcium 8.6 mg/dL (8.6-10.3); Carbon Dioxide 24 mEq/L (23-29); Chloride 103 mEq/L (98-107); Glucose 115 mg/dL (70-105); Osmolality,Calculated 277 (280-300); Potassium 4.1 mEq/L (3.5-5.1); Sodium 133 mEq/L (136-145); eGFR For African Americans > 60 (> 60); eGFR For Non-African Americans > 60 (> 60)
[2019-09-06 08:12] LABS: Hemoglobin 12.3 g/dL (12.9-16.9)
[2019-09-06] MEDS: *HR* HYDROmorphone (PF) 1 MG/ML SYRINGE IVP PRN (11:35)
[2019-09-06] MEDS: lisinopriL 20 MG TABLET PO SCH (11:35)
[2019-09-06] MEDS: *HR* Heparin 5,000 UNIT/ML VIAL SQ SCH ×2 (13:39→21:24)
[2019-09-06] MEDS: 0.9 % Sodium Chloride 1,000 ML IVC SCH (13:39)
[2019-09-06] MEDS: Nicotine 21 MG PATCH.TD24 TD SCH (15:22)
[2019-09-07] MEDS: *HR* HYDROmorphone (PF) 1 MG/ML SYRINGE IVP PRN (02:03)
[2019-09-07 02:22] LABS: Basophils # 0.1 K/mcL (0.0-0.2); Basophils % 0.9 %; Eosinophils # 0.1 K/mcL (0.0-0.6); Eosinophils % 0.6 %; Hematocrit 37.6 % (37.5-50.1); Hemoglobin 12.6 g/dL (12.9-16.9); Immature Granulocytes % 0.5 % (0-4); Lymphocytes % 16.1 %; Mean Corpuscular HGB Conc 33.5 g/dL (31.6-35.5); Mean Corpuscular Hemoglobin 32.2 pg (28.0-33.3); Mean Corpuscular Volume 96.2 fL (83.0-100.0); Mean Platelet Volume 9.5 fL (9.4-12.4); Monocytes # 1.1 K/mcL (0.0-1.3); Monocytes % 9.1 %; Platelet Count 215 K/mcL (140-400); Red Blood Count 3.91 M/mcL (4.19-5.50); Red Cell Distribution Width 11.8 % (11.5-14.5); Segmented Neutrophils % 72.8 %; White Blood Count 12.4 K/mcL (4.3-11.1)
[2019-09-07 02:42] LABS: BUN/Creatinine Ratio 18 (6-26); Blood Urea Nitrogen 14 mg/dL (8-23); Calcium 8.5 mg/dL (8.6-10.3); Carbon Dioxide 23 mEq/L (23-29); Chloride 98 mEq/L (98-107); Glucose 107 mg/dL (70-105); Osmolality,Calculated 267 (280-300); Potassium 4.1 mEq/L (3.5-5.1); Sodium 128 mEq/L (136-145); eGFR For African Americans > 60 (> 60); eGFR For Non-African Americans > 60 (> 60)
[2019-09-07] MEDS: *HR* Heparin 5,000 UNIT/ML VIAL SQ SCH ×3 (06:13→21:16)
[2019-09-07] MEDS: lisinopriL 20 MG TABLET PO SCH (07:16)
[2019-09-07] MEDS: Nicotine 21 MG PATCH.TD24 TD SCH (07:16)
[2019-09-07] MEDS: amLODIPine 5 MG TABLET PO SCH (07:16)
[2019-09-07] MEDS: Metoprolol XL (24 HR) Succ 25 MG TAB.ER.24H PO SCH (07:16)
[2019-09-07] MEDS: 0.9 % Sodium Chloride 1,000 ML IVC SCH (07:17)
[2019-09-07] MEDS ORDERED: polyethylene glycoL 3350 17 GM POWD.PACK PO PRN (10:57)
[2019-09-08 03:47] LABS: Basophils # 0.1 K/mcL (0.0-0.2); Basophils % 0.8 %; Eosinophils # 0.1 K/mcL (0.0-0.6); Eosinophils % 0.5 %; Hematocrit 36.8 % (37.5-50.1); Hemoglobin 12.4 g/dL (12.9-16.9); Immature Granulocytes % 0.6 % (0-4); Lymphocytes # 2.1 K/mcL (0.6-4.6); Lymphocytes % 16.9 %; Mean Corpuscular HGB Conc 33.7 g/dL (31.6-35.5); Mean Corpuscular Hemoglobin 32.2 pg (28.0-33.3); Mean Corpuscular Volume 95.6 fL (83.0-100.0); Mean Platelet Volume 9.5 fL (9.4-12.4); Monocytes # 0.9 K/mcL (0.0-1.3); Monocytes % 7.3 %; Neutrophils # 9.3 K/mcL (1.6-8.9); Platelet Count 232 K/mcL (140-400); Red Blood Count 3.85 M/mcL (4.19-5.50); Red Cell Distribution Width 11.6 % (11.5-14.5); Segmented Neutrophils % 73.9 %; White Blood Count 12.5 K/mcL (4.3-11.1)
[2019-09-08 04:07] LABS: BUN/Creatinine Ratio 20 (6-26); Blood Urea Nitrogen 12 mg/dL (8-23); Calcium 8.6 mg/dL (8.6-10.3); Carbon Dioxide 22 mEq/L (23-29); Chloride 98 mEq/L (98-107); Glucose 101 mg/dL (70-105); Osmolality,Calculated 264 (280-300); Potassium 4.1 mEq/L (3.5-5.1); Sodium 127 mEq/L (136-145); eGFR For African Americans > 60 (> 60); eGFR For Non-African Americans > 60 (> 60)
[2019-09-08] MEDS: 0.9 % Sodium Chloride 1,000 ML IVC SCH (04:23)
[2019-09-08] MEDS: *HR* Heparin 5,000 UNIT/ML VIAL SQ SCH (06:02)
[2019-09-08] MEDS ORDERED: amLODIPine 5 MG TABLET PO SCH (09:00)
[2019-09-08] MEDS: Nicotine 21 MG PATCH.TD24 TD SCH (09:24)
[2019-09-08] MEDS: Metoprolol XL (24 HR) Succ 25 MG TAB.ER.24H PO SCH (09:25)
[2019-09-08] MEDS: lisinopriL 20 MG TABLET PO SCH (09:25)
[2019-09-08 10:21] VITALS: BP 163/87
== END 2019-09-08 12:31 | DRG 305 ==
LOC: ICNU 14:56 → EMEROOARM 14:56 → SUATTDRO 18:24 → ICNU 19:08 → 3NENU 09-05 11:10 → 2NNU 09-06 11:07 → 3ANU 09-07 15:09
PROVIDERS: ADMIT Internal Medicine; ATTEND Internal Medicine